=== PATIENT | female | born 1950 | race Caucasian/White ===

== ENCOUNTER → 2017-12-11 | Outpatient (CLI) | payer OTHER ==
[2017-12-11 13:16] LABS: MEAN CORPUSCULAR HGB CONC 32.8 g/dl (32-36); MEAN PLATELET VOLUME 10.5 fL (7.4-10.4); PLATELET COUNT 253 K/uL (130-400)
[2017-12-11 13:50] LABS: BASO % 0.4 %; BASO ABS # 0.02 K/uL (0-0.2); EOS % 3.9 %; EOS ABS # 0.21 K/uL (0-0.5); HEMATOCRIT 39.6 % (37-47); IG# 0.01 K/uL (0.00-0.02); LYMPH ABS # 1.49 K/uL (1.2-3.4); MEAN CELL VOLUME 89.4 fL (80-100); MEAN CORPUSCULAR HEMOGLOBIN 29.3 pg (25-34); MONO % 10.9 %; MONO ABS # 0.58 K/uL (0.11-0.59); NEUT % 56.6 %; NEUT ABS # 3.02 K/uL (1.4-6.5); WHITE BLOOD COUNT 5.33 K/uL (4.8-10.8)
[2017-12-11 14:00] LABS: BLOOD UREA NITROGEN 28 mg/dl (7-18); CALCIUM 9.3 mg/dl (8.5-10.1); CARBON DIOXIDE 28 mmol/L (21-32); CREATININE 1.11 mg/dl (0.60-1.20); GLUCOSE 81 mg/dl (70-99); POTASSIUM 4.3 mmol/L (3.5-5.1); SODIUM 140 mmol/L (136-145)
[2017-12-12 06:30] LABS: HEMOGLOBIN A1C 5.8 % (4.5-5.6)
== END | disposition home or self-care (01) ==
LOC: C.LABMFLN 10:08
PROVIDERS: ATTEND Family Medicine
DX: I10 Essential (primary) hypertension (principal); R73.01 Impaired fasting glucose; R12 Heartburn

== ENCOUNTER 2021-10-14 08:53 | Inpatient (IN) ==
--- NOTE | 2021-10-05 14:35 | Anesthesiology Consultation ---
Date of Service October 05, 2021 Assessment & Plan (1) Encounter for pre-operative examination: Chart Review Chart Review: Acceptable Risk for Surgery (pending preop Covid testing results ) and Patient NOT seen in Pre Admission Testing Per nursing assessment 10/05/2021, pt resides in [facility]. Wears mask in public. Travels to [facility]. Did attend meeting on 09/30/21- was in large room for one hour- wore mask- person at meeting did test Covid positive with home test. Pt denies any current symptoms related to Covid. No known Covid testing in the past 90 days. Pt is fully vaccinated for Covid. Preop Covid testing scheduled 10/12/21 (will be 12 days since possible Covid exposure)= will await results Pt seen by PCP 10/03/21= seen for ER follow up- was under increased stress- BP was high and patient felt lightheaded- did go to ER. No chest pain or SOB. Troponin and EKG was good. Patient is scheduled for upcoming knee replacement on October 14, 2021. Preop labs reviewed and felt acceptable. Patient checking BP at homehas been in 140-150s systolically and 70 to 80s diastolically. Atenolol increased to 25 mg twice daily. Continue all other medications. Continue to monitor blood pressure. We will follow-up with patient after surgery on 10/14/2021. History Surgery Operation Date: 10/14/21 09:55 Proposed Procedures p Left Total Knee Arthroplasty - Pelon Nicole DO Height/Weight Height: 5 ft 2 in Weight: 86.183 kg Allergies Allergy/AdvReac Type Severity Reaction Status Date / Time Sulfa (Sulfonamide Allergy Intermediate Rash Verified 10/05/21 10:39 Antibiotics) ibuprofen Allergy Mild Rash Verified 10/05/21 10:39 Medications Home Medications Medication Instructions Recorded Confirmed Last Taken lactobacillus combination no.8 3 3,000 mmu cells PO QAM 05/25/20 10/05/21 Unknown billion cell capsule (Adult Probiotic) diclofenac sodium 1 % topical gel 2 g TOPICAL QID PRN 01/18/21 10/05/21 Unknown (Voltaren) aspirin 81 mg tablet,delayed 81 mg PO QAM 06/06/21 10/05/21 Unknown release calcium carbonate 600 mg-vitamin 1 tab PO QAM 06/06/21 10/05/21 Unknown D3 5 mcg (200 unit) tablet cetirizine 10 mg tablet (Allergy 10 mg PO HS 06/06/21 10/05/21 Unknown Relief (cetirizine)) cholecalciferol (vitamin D3) 25 1,000 units PO QAM 06/06/21 10/05/21 Unknown mcg (1,000 unit) capsule furosemide 20 mg tablet (Lasix) 20 mg PO QAM 06/06/21 10/05/21 Unknown lisinopril 20 mg tablet 20 mg PO QAM 06/06/21 10/05/21 Unknown multivitamin 1 cap PO QAM 06/06/21 10/05/21 Unknown omeprazole 20 mg capsule,delayed See Rx Instructions .ROUTE 08/29/21 10/05/21 Unknown release .COMPLEX #90 capsule atenolol 25 mg tablet 25 mg PO BID 10/05/21 10/05/21 Unknown Past Medical History Medical History Allergic rhinitis Anxiety Chronic kidney disease, stage III (moderate) F/U PCP Dyslipidemia no meds Heartburn Well controlled and stable HTN (hypertension) Impaired fasting glucose Hgb A1C 5.8 on 09/27/21 Menopause Osteoarthritis Past Family History Family History Mother Bacterial meningitis Diabetes Father Hypertension Myocardial infarction Thyroid disorder Aunt Breast cancer Denies family history of Ovarian cancer Prostate cancer Lung cancer Colorectal cancer Past Surgical History Surgical History H/O breast biopsy benign H/O foot surgery Hammer toe and bunion surgery > bilat feet History of cataract surgery bilat History of colonoscopy Social History Smoking Status: Never smoker Do You Dip or Chew Tobacco: No Hx Alcohol Use: Yes Alcohol type: hard liquor alcohol intake frequency: holidays/special occasions only Hx Substance Use: No substance use type: does not use Lab Results Anesthesia Preop Results Results Anesthesia Widget: WBC 5.80 K/uL (4.8-10.8) 09/27/21 Hgb 13.7 g/dL (12.0-16.0) 09/27/21 Hct 42.8 % (37-47) 09/27/21 Plt 280 K/uL (130-400) 09/27/21 Na 137 mmol/L (136-145) 09/27/21 K 4.1 mmol/L (3.5-5.1) 09/27/21 Cl 103 mmol/L (98-107) 09/27/21 CO2 28 mmol/L (21-32) 09/27/21 BUN 20 mg/dl (6-23) 09/27/21 Creat 1.04 mg/dl (0.6-1.2) 09/27/21 Glucose Level 102 mg/dl (70-99(Fasting)) H 09/27/21 PT 10.0 Seconds (9.0-12.0) 09/27/21 PTT 27.1 Seconds (21.0-31.0) 09/27/21 INR 1.0 (0.9-1.1) 09/27/21 HA1c 5.8 % (4.5-5.6) H 09/27/21 Urine Color Yellow 09/27/21 Urine Appearance Clear (Clear) 09/27/21 Urine pH 7.5 (4.5-7.5) 09/27/21 Urine Specific [place] 1.015 (1.000-1.030) 09/27/21 Urine Protein 1+ (Negative) H 09/27/21 Urine Glucose (UA) Negative (Negative) 09/27/21 Urine Ketones Negative (Negative) 09/27/21 Urine Blood 1+ (Negative) H 09/27/21 Urine Nitrite Negative (Negative) 09/27/21 Urine Bilirubin Negative (Negative) 09/27/21 Urine Urobilinogen Negative (Negative) 09/27/21 Urine Leukocyte Esterase 1+ (Negative) H 09/27/21 Urine WBC (Auto) 1-5 /hpf (0-5) 09/27/21 Urine RBC (Auto) 10-30 /hpf (0-4) H 09/27/21 Urine Hyaline Casts (Auto) 1-5 /lpf (0-5) 09/27/21 Urine Epithelial Cells (Auto) >30 /lpf (0-5) H 09/27/21 Urine Bacteria (Auto) Negative (Negative) 09/27/21 Testing Electrocardiogram Date: 06/14/21 Findings: + NSR @ (72bpm) Normal EKG per cardio Chest X-Ray Date: 09/07/21 Findings: + NAD
--- NOTE | 2021-10-11 08:34 | History & Physical Report ---
Date of Service October 11, 2021 Assessment & Plan (1) Left knee DJD: Plan: Schedule a left knee TKA for 10.14.21. All potential risks, benefits, complications, alternatives, and rehab have been discussed with the patient and she wishes to proceed. Will plan for ASA 81 mg BID x 4 wks for post op DVT prophylaxis. Possible d/c home with home health upon d/c. History of Present Illness Chief Complaint: left knee pain Primary Care Provider: Glenn Lieberman DO This is a patient with chronic left knee pain that has been treated for left knee osteoarthritis. She has failed all conservative management. She is now being set up for surgical management. Allergies Allergy/AdvReac Type Severity Reaction Status Date / Time Sulfa (Sulfonamide Allergy Intermediate Rash Verified 10/05/21 10:39 Antibiotics) ibuprofen Allergy Mild Rash Verified 10/05/21 10:39 Home Medications Medication Instructions Recorded Confirmed Type lactobacillus combination no.8 3 3,000 mmu cells PO QAM 05/25/20 10/05/21 History billion cell capsule (Adult Probiotic) diclofenac sodium 1 % topical gel 2 g TOPICAL QID PRN 01/18/21 10/05/21 History (Voltaren) aspirin 81 mg tablet,delayed 81 mg PO QAM 06/06/21 10/05/21 History release calcium carbonate 600 mg-vitamin 1 tab PO QAM 06/06/21 10/05/21 History D3 5 mcg (200 unit) tablet cetirizine 10 mg tablet (Allergy 10 mg PO HS 06/06/21 10/05/21 History Relief (cetirizine)) cholecalciferol (vitamin D3) 25 1,000 units PO QAM 06/06/21 10/05/21 History mcg (1,000 unit) capsule furosemide 20 mg tablet (Lasix) 20 mg PO QAM 06/06/21 10/05/21 History lisinopril 20 mg tablet 20 mg PO QAM 06/06/21 10/05/21 History multivitamin 1 cap PO QAM 06/06/21 10/05/21 History omeprazole 20 mg capsule,delayed See Rx Instructions .ROUTE 08/29/21 10/05/21 Rx release .COMPLEX #90 capsule atenolol 25 mg tablet 25 mg PO BID 10/05/21 10/05/21 History Past Med/Surg History Medical History Allergic rhinitis Anxiety Chronic kidney disease, stage III (moderate) F/U PCP Dyslipidemia no meds Heartburn Well controlled and stable HTN (hypertension) Impaired fasting glucose Hgb A1C 5.8 on 09/27/21 Menopause Osteoarthritis Surgical History H/O breast biopsy benign H/O foot surgery Hammer toe and bunion surgery > bilat feet History of cataract surgery bilat History of colonoscopy Family History Mother Bacterial meningitis Diabetes Father Hypertension Myocardial infarction Thyroid disorder Aunt Breast cancer Denies family history of Ovarian cancer Prostate cancer Lung cancer Colorectal cancer Social History Smoking Status: Never smoker Second Hand Exposure: Yes (FATHER SMOKED); Hx Alcohol Use: Yes Alcohol type: hard liquor Hx Substance Use: No Preferred Language: Divehi Communication Ability: Effective Visual Impairment: Partially Limited Hearing Ability: Normal Shoe Stainer Required: No Beliefs That Will Affect Care: None marital status: Current Living Situation: Spouse current occupational status: retired How many Children do You have: 2 Feels Safe at Home: Yes Childhood Exposure to Second-Hand Smoke: Yes Diet Comment: regular diet caffeine: Yes (soda- occasion) during the past year weight has: remained stable Dental Care, Regularly: Yes Physical Activity Frequency: Daily Physical Activity Frequency Comment: walks 2 miles a day Seatbelt Use: always Sunscreen Use: No Do you think of yourself as: straight/heterosexual Assistive Devices: Glasses Physical Exam Constitutional: well developed and well nourished; no acute distress ENMT: external ear and nose normal, oropharynx normal Neck: trachea midline Respiratory: normal respiratory effort, lungs clear to auscultation Cardiovascular: Rate/Rhythm: regular rate and regular rhythm Gastrointestinal (Abdomen): normal bowel sounds, soft, nontender, no hepatosplenomegaly Musculoskeletal: Knee: + joint line tenderness (left medial/lateral joint lines); no skin erythema, no ecchymosis, no valgus alignment and no varus alignment Skin: no rashes, warm and dry Neurologic: normal touch/pain/proprioception Psychiatric: A+Ox3, euthymic affect Speech: normal rate/rhythm/volume of speech Lymphatic: no cervical or axillary lymphadenopathy
[~2021-10-14 08:53] MED LIST: ACETAMINOPHEN 500 MG TAB PO SCH; BUPIVACAINE 0.5 % 5 MG/1 ML PF 10ML VIAL ONE; EPINEPHrine INJ 1 MG/ML AMP ONE; FAMOTIDINE 20 MG TAB PO SCH; GABAPENTIN 600 MG DOSE PO SCH; LR 500ML BOLUS, THEN 15ML/HR IV SCH; ROPIVACAINE 0.5% 5 MG/ML 30 ML VIAL ONE; ROPIVACAINE 0.5% HCL/PF 150 MG, BUPIVACAINE 0.75% MPF 20 ML, EPINEPHrine 30MG/30ML (OR ... INFIL SCH; TRANEXAMIC ACID 1,000 MG **IV Intra-op IV SCH; TRANEXAMIC ACID 1,000 MG **IV Pre-op IV SCH; VANCOMYCIN HCL 1,250 MG in SODIUM CHLORIDE 0.9% 250 ML IV SCH; dexAMETHasone 4 MG TAB PO SCH; oxyCODONE HCL 10 MG TABCR (OxyCONTIN) PO SCH
--- NOTE | 2021-10-14 09:40 | History & Physical Bridge Note ---
Date of Service October 14, 2021 History & Physical Bridge Note I have examined the patient, reviewed the History & Physical and in the interval since the performance of the History & Physical I have noted the following changes of clinical significance: no changes noted
[2021-10-14] MEDS ORDERED: ATROPINE SULFATE 0.1 MG/ML 10ML SYR IV PRN (10:06)
[2021-10-14] MEDS ORDERED: MIDAZOLAM HCL 1 MG/ML 2ML VIAL ONE (10:06)
[2021-10-14] MEDS ORDERED: ePHEDrine sulfate 50 MG/ML AMP IV PRN (10:06)
[2021-10-14] MEDS ORDERED: ONDANSETRON INJ 2 MG/ML 2 ML VIAL IV PRN ×2 (10:06→15:03)
[2021-10-14] MEDS ORDERED: HYDROmorphone INJ 1 MG/ML SYRINGE IV PRN (10:06)
[2021-10-14] MEDS ORDERED: ceFAZolin 330 MG/ML 1 GM VIAL ONE (11:03)
[2021-10-14] MEDS ORDERED: ORTHO JOINT ANESTHETIC ONE (11:03)
[2021-10-14] MEDS ORDERED: LIDOCAINE 2% 2 ML VIAL/AMP(20MG/ML) INFIL ONE (12:19)
[2021-10-14] MEDS ORDERED: ONDANSETRON INJ 2 MG/ML 2 ML VIAL ONE (12:19)
[2021-10-14] MEDS ORDERED: PROPOFOL IV EMULSION 10 MG/ML 20 ML VIAL IV ONE ×2 (12:19→13:30)
--- NOTE | 2021-10-14 13:25 | Post Operative Brief Note ---
Immediate Post Op Note v1 Date of Surgery October 14, 2021 Pre & Post Diagnosis Operation Date: 10/14/21 10:25 Pre-Op Diagnosis: Left Knee Osteoarthritis, flexion contracture left knee, left knee pain Post-Op Diagnosis: Left Knee Osteoarthritis, flexion contracture left knee, left knee pain I identified the patient and participated in the time-out.: Yes Procedure Operation Date: 10/14/21 10:25 Actual Procedures p Left Total Knee Arthroplasty Ba & Neph MRI matched cemented size 5 femur, size 3 tibial insert, 15 mm posterior stabilized polyethylene, 35 mm round patella Pelon Nicole DO Surgeon Pelon Nicole DO Press Box Custodian Dinh Lopez PA-C Estimated Blood Loss 5 Findings Consistent with Post-Op Diagnosis Specimens Bone and tissue left knee Drains Hemovac Drain Anesthesia Type MAC Spinal Regional Complications none Disposition Accompanied Patient To Recovery: No
--- NOTE | 2021-10-14 14:21 | Operative Report (OR) ---
DATE OF PROCEDURE: 10/14/2021. PREOPERATIVE DIAGNOSES: 1. Left knee osteoarthritis. 2. Flexion contracture. 3. Left knee pain. POSTOPERATIVE DIAGNOSES: 1. Left knee osteoarthritis. 2. Flexion contracture. 3. Left knee pain. PROCEDURE: Left total knee arthroplasty using a Ba and Nephew MRI matched cemented size 5 femur, size 3 tibia, 15 mm posterior stabilized polyethylene and a 35 mm round patella. SURGEON: Pelon Nicole DO. HYBRID TESTER: Dinh Lopez PA-C who was present for patient positioning, sterile prep and drape, management of retractors and instruments. He was present through the critical portions of the case including wound closure, application of sterile dressing and transport of the patient to recovery. ANESTHESIA: Spinal MAC, regional with intraarticular local. SPECIMENS: Bone and tissue, left knee. DRAINS: Hemovac x2. COMPLICATIONS: None. BLOOD LOSS: 5 mL. PERTINENT HISTORY: This is a 71-year-old female who has had chronic progressive and worsening left knee pain, swelling, effusion and deformity. She attempted and failed conservative management including physical therapy, NSAIDs, rest, ice, elevation, heat, physician-directed home exercises, use of brace and use of an assistive device. Radiographs demonstrate severe degenerative arthritis, particularly of the patellofemoral articulation with a slight plantar flexion contracture, marginal osteophytes, subchondral sclerosis, and subchondral cysts. The patient was then scheduled for surgery as indicated. All potential risks, benefits, complications, alternatives, rehab potential for incomplete relief of symptoms, need for further surgery, DVT, PE, , persistent pain, swelling, scarring, weakness, neurovascular injury, wound complications, hardware failure, nonunion, malunion, bone fracture were discussed with the patient. The patient decided to proceed with the procedure as indicated. PROCEDURE: The patient was taken to the Operative Suite and placed supine on the operating table after spinal epidural was initiated. Next, tourniquet was placed high on the left thigh over cast padding and the patient was sedated. The left lower extremity was then sterilely prepped and draped in the usual fashion. It was elevated and exsanguinated with an Esmarch bandage and tourniquet inflated to 350 mmHg. Next, a 10-blade scalpel incision was made along the anterior midline of the left knee with incision deep through the subcutaneous tissue. Meticulous hemostasis was utilized with electrocautery. Full thickness skin flaps were developed both medially and laterally and 10-blade scalpel was used to make a median parapatellar incision in the extensor. The patella was everted and soft tissue releases were performed. The medial collateral was noted to be slightly tight so this was partially released using pie-crusting technique and the Phoenix elevator was placed from the posterior aspect of the capsule releasing any contracture. Next, the patella was everted and resurfaced using sagittal saw and orthogonal cuts. After caliper measured 28 mm, residual patella was approximately 15 mm and 35 mm button trial was placed and then drilled. Next, the appropriate retractors were placed and the femoral patient matched cutting block was pinned to the distal aspect of the femur. The distal femoral cut was made and pinned with pins and the distal femoral cutting guide was removed. The 4-in-1 cutting block was then pinned in place and anterior, posterior, anterior chamfer, and posterior chamfer cuts were made. Block and bone fragments were then removed followed by exposure of the proximal tibia. Sharp Hohmann was used to place just posterior to the tibia to protract it. Medial and lateral sharp Hohmann's were placed to protect the soft tissue and the tibial cutting block was then pinned in place. Tibial alignment angelika was utilized to confirm alignment and the proximal tibia was then cut made with sagittal saw. Fragment was removed. The Size 3 tibial trial was pinned in place and circumferential proximal release was performed with electrocautery around the proximal tibia. Next, the femoral trial was placed within appropriate medial and lateral alignment and then the cutting block was then put into place. It was reamed and box cut was performed. Excess debris was removed from the femoral notch. The insert was placed into the distal aspect of the femur. Trial poly Size 15 mm was placed on the proximal tibia. The knee was reduced. Trial poly Size 35 mm was placed in the patella. The knee was reduced. Excellent alignment and range of motion was achieved with correction of the genu varum and flexion contracture was achieved. Next, all components were removed. The Orthomix was injected into the posterior capsule and anterior aspect of the capsule. Next, the wound was lavaged with pulsatile lavage and all surfaces were suctioned and dried. Palacos-G cement was placed in the distal femur, proximal tibia, patella, and then a small amount was placed in the canal of the tibia. All implants were impacted into place in a stable fashion. Excess cement was removed from the joint. The patellar button was cemented and clamped in place. The incision was soaked with dilute sterile Betadine for a period of 3 minutes. Betadine was then suctioned from the joint. Site was copiously irrigated with sterile saline until clear. After sufficient drying time elapsed a 10-Georgian double lumen Hemovac drain was placed in the anterolateral aspect of the knee. The extensor mechanism was closed using interrupted #1 Vicryl. The dermis was closed using buried interrupted 2-0 Vicryl. The skin was closed with skin tisha. Sterile compressive dressing from the toes to the groin was applied. The tourniquet was released. The patient was awakened and taken to the Recovery Room in stable condition. Job ID: [id number] [facility]
--- NOTE | 2021-10-14 14:24 | XRay Report ---
LEFT KNEE 2 VIEWS History: Left total knee arthroplasty. Degenerative arthritis. Postop. FINDINGS: The patient is status post a left total knee arthroplasty. The hardware is intact. No fract ure or dislocation. Skin tisha and surgical drains are in place. IMPRESSION: Left total knee arthroplasty. No evidence for hardware complication. ACT 112: Negative or not required by law. Electronically signed by: Larry Irizarry M.D. 10/14/2021 2:23 PM
--- NOTE | 2021-10-14 14:50 | Anesthesiology Progress Note ---
Date of Service October 14, 2021 Anesthesia Post Procedure Vital Signs Vital Signs: Temp Pulse Pulse Resp BP Pulse Ox 10/14/21 14:45 36.3 C L 56 L 19 134/68 98 10/14/21 14:35 52 L 14 133/69 97 10/14/21 14:25 55 L 12 126/69 96 10/14/21 14:15 57 L 17 132/72 98 10/14/21 14:05 63 15 118/64 98 10/14/21 13:57 36.2 C L 65 12 122/64 97 10/14/21 11:15 57 L 20 115/56 L 98 10/14/21 11:12 55 L 20 116/59 L 99 10/14/21 11:06 55 L 20 116/59 L 99 10/14/21 11:05 57 L 20 114/60 98 10/14/21 11:03 59 L 20 116/59 L 99 10/14/21 11:02 59 L 20 105/64 99 10/14/21 10:59 59 L 20 112/56 L 97 10/14/21 09:56 37.2 C 65 20 153/102 H 97 Transfer of Care Handoff Completed per policy Notes Mental Status: alert / awake / arousable Patient Amnestic to Procedure: Yes Nausea / Vomiting: adequately controlled Pain: adequately controlled Airway Patency, RR, SpO2: stable & adequate BP & HR: stable & adequate Hydration State: stable & adequate Anesthetic Complications: no major complications apparent
[2021-10-14] MEDS ORDERED: MAGNESIUM HYDROXIDE SUSP 30 ML UDC PO PRN (15:03)
[2021-10-14] MEDS ORDERED: HYDROmorphone INJ 0.5 MG/0.5 ML SYR IV PRN (15:03)
[2021-10-14] MEDS ORDERED: DICLOFENAC SOD 1% GEL 100 GM TUBE EXT PRN (15:03)
[2021-10-14] MEDS ORDERED: NALOXONE HCL 0.4 MG/1 ML VIAL/CARP IV PRN (15:03)
[2021-10-14] MEDS ORDERED: bisacodyL 10 MG SUPP PR PRN (15:03)
[2021-10-14] MEDS ORDERED: oxyCODONE HCL IR 5 MG TAB (IMMEDIATE RELEASE) PO PRN (15:03)
[2021-10-14] MEDS ORDERED: KETOROLAC TROMETHAMINE 15 MG/ML VIAL IV PRN (15:03)
[2021-10-14] MEDS ORDERED: METOCLOPRAMIDE HCL INJ 5 MG/ML 2 ML VIAL IV PRN (15:03)
[2021-10-14] MEDS ORDERED: diphenhydrAMINE Capsule 25 MG CAP PO PRN (15:03)
[2021-10-14] MEDS ORDERED: VANCOMYCIN CONSULT ACTIVE PRN (15:03)
[2021-10-14] MEDS: SODIUM CHLORIDE 0.9% 1000ML 1,000 ML IV SCH (15:05)
[2021-10-14] MEDS: ACETAMINOPHEN 500 MG TAB PO SCH ×2 (17:13→21:51)
[2021-10-14] MEDS ORDERED: traMADol HCL 50 MG TABLET PO PRN (17:57)
[2021-10-14] MEDS ORDERED: cloNIDine HCL 0.1 MG TAB PO PRN (18:06)
--- NOTE | 2021-10-14 18:11 | Hospitalist Consultation ---
Date of Consultation October 14, 2021 Assessment & Plan (1) Sinus bradycardia: * Patient routinely takes atenolol-- she did take this today * Perioperatively was given oxycodone and propofol * Perioperative heart rate in the 50s. When got to the floor, was 44. Current heart rate is 56 * I suspect due to beta-blockade, propofol and oxycodone given * Patient reports that her heart rate typically is in the 60s. Not much wiggle room with this * Hold atenolol for now * Would avoid opiates. I have transitioned her pain medication to Ultram * Given asymptomatic bradycardia at 44 with current heart rate of 56, I do not feel that she needs moved to the PCU. Encourage patient that she should not g et out of bed alone (2) HTN (hypertension): * Blood pressure currently 127/79 * Hold atenolol due to sinus bradycardia as outlined above * Hold lisinopril given spinal anesthesia utilized. This poses increased risk of LARISA (especially in the setting of CKD) and hypotension. Okay to resume 48 hours postoperatively pending renal function remains stable * Hold Lasix. Patient reports that she uses this for blood pressure. She does not have a history of CHF. Given her underlying CKD, would question this. Could utilize additional medications that are not nephrotoxic * Clonidine with parameters ordered if needed (3) Chronic kidney disease, stage III (moderate): * Creatinine 1.04 preoperatively * Follow-up labs in the a.m. * Again, avoid nephrotoxic agents as outlined above (4) GERD (gastroesophageal reflux disease): * stable Plan of care will be discussed with Dr. Bael. Further orders as warranted. Thank you for allowing us to participate in the care of this patient. We will continue to follow for now History of Present Illness Reason for Consultation: Bradycardia Requesting Physician: Dr. Nicole Attending Physician: Pelon Nicole DO History of Present Illness Mrs. Galvez is a 71-year-old white female with an underlying past medical history of HTN, GERD, and OA failing conservative measures. She underwent an elective left total knee arthroplasty today by Dr. Hunter Nicole. She had an uneventful perioperative course. She was given spinal anesthesia along with propofol, transischemic acid, bupivacaine and ropivacaine. Preoperatively, she received oxycodone. Her heart rate perioperatively has been in the 50s. When she came back from PACU, heart rate was noted to be 44 and medicine was consulted. Patient denies dizziness/lightheadedness and is completely asymptomatic. She does have an underlying history of HTN for which she takes atenolol. She did take this medication this morning. She has a history of bradycardia postoperatively in the past. At the time of evaluation by myself, her current heart rate is 56. Of note, patient denies a history of postoperative complications in the past. She denies a personal, and/or family history of DVT, PE, low dyscrasia. She lives in a bilevel home and she is hopeful to go back home upon discharge. Allergies Allergy/AdvReac Type Severity Reaction Status Date / Time Sulfa (Sulfonamide Allergy Intermediate Rash Verified 10/14/21 09:34 Antibiotics) ibuprofen Allergy Mild Rash Verified 10/14/21 09:34 Home Medications Medication Instructions Recorded Confirmed Type lactobacillus combination no.8 3 3,000 mmu cells PO QAM 05/25/20 10/14/21 History billion cell capsule (Adult Probiotic) diclofenac sodium 1 % topical gel 2 g TOPICAL QID PRN 01/18/21 10/14/21 History (Voltaren) aspirin 81 mg tablet,delayed 81 mg PO QAM 06/06/21 10/14/21 History release calcium carbonate 600 mg-vitamin 1 tab PO QAM 06/06/21 10/14/21 History D3 5 mcg (200 unit) tablet cetirizine 10 mg tablet (Allergy 10 mg PO HS 06/06/21 10/14/21 History Relief (cetirizine)) cholecalciferol (vitamin D3) 25 1,000 units PO QAM 06/06/21 10/14/21 History mcg (1,000 unit) capsule furosemide 20 mg tablet (Lasix) 20 mg PO QAM 06/06/21 10/14/21 History lisinopril 20 mg tablet 20 mg PO QAM 06/06/21 10/14/21 History multivitamin 1 cap PO QAM 06/06/21 10/14/21 History omeprazole 20 mg capsule,delayed See Rx Instructions .ROUTE 08/29/21 10/05/21 Rx release .COMPLEX #90 capsule atenolol 25 mg tablet 25 mg PO BID 10/05/21 10/14/21 History Patient History Medical History Allergic rhinitis Anxiety Chronic kidney disease, stage III (moderate) F/U PCP Dyslipidemia no meds Heartburn Well controlled and stable HTN (hypertension) Impaired fasting glucose Hgb A1C 5.8 on 09/27/21 Menopause Osteoarthritis Surgical History H/O breast biopsy benign H/O foot surgery Hammer toe and bunion surgery > bilat feet History of cataract surgery bilat History of colonoscopy Family History Mother Bacterial meningitis Diabetes Father Hypertension Myocardial infarction Thyroid disorder Aunt Breast cancer Denies family history of Ovarian cancer Prostate cancer Lung cancer Colorectal cancer Social History Smoking Status: Never smoker Second Hand Exposure: Yes (FATHER SMOKED); Do You Dip or Chew Tobacco: No; Hx Alcohol Use: Yes Alcohol type: hard liquor Hx Substance Use: No Preferred Language: Mongolian Communication Ability: Effective Visual Impairment: Partially Limited Hearing Ability: Normal Back Tender Fourdrinier Required: No Beliefs That Will Affect Care: None marital status: Current Living Situation: Spouse current occupational status: retired How many Children do You have: 2 Other Information That Helps Us Care for You: No Feels Safe at Home: Yes Safety Concerns: Feels Safe At This Time Childhood Exposure to Second-Hand Smoke: Yes Diet Comment: regular diet caffeine: Yes (soda- occasion) during the past year weight has: remained stable Dental Care, Regularly: Yes Physical Activity Frequency: Daily Physical Activity Frequency Comment: walks 2 miles a day Seatbelt Use: always Sunscreen Use: No Do you think of yourself as: straight/heterosexual Assistive Devices: Glasses and Walker Review of Systems Review of Systems: All systems reviewed and are unremarkable except as noted in HPI and below Denies fevers, chills, headache, nasal congestion, sore throat, cough, chest pain, shortness of breath, palpitations, orthopnea, PND, abdominal pain, nausea, vomiting, diarrhea, constipation, dysuria, hematuria, frequency, back pain, joint pain or swelling, easy bruising or bleeding, skin lesions or rashes. Physical Exam Physical Exam: General: Resting comfortably in her hospital bed. Appears younger than stated age. NAD. HEENT: Head is AT/NC buccal mucosa is moist and pink Neck: No JVD. Negative hepatojugular reflex Cardiac: Current HR of 56, regular with 1/6 EDGAR Lungs: CTA without W/R/R Abdomen: Normoactive X4. Soft and nontender in all quadrants. Extremities: Left lower extremity with Daniel wrap in place. Obvious Hemovac. Distal pulses intact and special bilaterally. Capillary fill +2. Negative Homans' sign. No calf tenderness Neuro: A&O X4 cranial nerves II through XII are grossly intact no focal neuro deficits Skin: No obvious skin lesions or rashes Psych: Appropriate affect pleasant and cooperative Results & Data Results & Data ([facility]) Vital Signs (Past 12 Hours) Vital Signs Temp Pulse Pulse Resp BP Pulse Ox 10/14/21 16:00 45 L 18 127/79 94 10/14/21 15:27 44 L 18 140/73 99 10/14/21 15:00 36.4 C L 51 L 18 128/79 98 10/14/21 14:45 36.3 C L 56 L 19 134/68 98 10/14/21 14:35 52 L 14 133/69 97 10/14/21 14:25 55 L 12 126/69 96 10/14/21 14:15 57 L 17 132/72 98 10/14/21 14:05 63 15 118/64 98 10/14/21 13:57 36.2 C L 65 12 122/64 97 10/14/21 11:15 57 L 20 115/56 L 98 10/14/21 11:12 55 L 20 116/59 L 99 10/14/21 11:06 55 L 20 116/59 L 99 10/14/21 11:05 57 L 20 114/60 98 10/14/21 11:03 59 L 20 116/59 L 99 10/14/21 11:02 59 L 20 105/64 99 10/14/21 10:59 59 L 20 112/56 L 97 10/14/21 09:56 37.2 C 65 20 153/102 H 97 Laboratory Results No lab data today. Reviewed labs from 09/27. CBC and metabolic panel within normal limits PG Care Time/CCT Total # of Minutes Spent Total Time Spent with Patient: Total time spent is greater than 50% in coordination of care (as documented) at patient's floor/unit and/or counseling patient: Coding Level of Care Code 71896 Inpt Consult Level 5 Diagnoses Sinus bradycardia R00.1 HTN (hypertension) I10 Chronic kidney disease, stage III (moderate) N18.3 GERD (gastroesophageal reflux disease) K21.9
[2021-10-14] MEDS: DOCUSATE SODIUM 100 MG CAP PO SCH (20:05)
[2021-10-14] MEDS: ASPIRIN 81 MG ECTAB PO SCH (20:05)
[2021-10-14] MEDS ORDERED: SENNA 8.6 MG TAB PO SCH (21:00)
[2021-10-14] MEDS ORDERED: ATENOLOL 25 MG TABLET PO SCH (21:00)
[2021-10-14] MEDS ORDERED: CETIRIZINE HCL 10 MG TABLET PO SCH (21:00)
[2021-10-14] MEDS: traMADol HCL 50 MG TABLET PO PRN (23:34)
[2021-10-14] MEDS ORDERED: VANCOMYCIN HCL 1,250 MG in SODIUM CHLORIDE 0.9% 250 ML IV SCH (23:45)
[2021-10-15] MEDS: SODIUM CHLORIDE 0.9% 1000ML 1,000 ML IV SCH (01:04)
[2021-10-15] MEDS: ACETAMINOPHEN 500 MG TAB PO SCH ×2 (05:47→13:35)
[2021-10-15] MEDS: ASPIRIN 81 MG ECTAB PO SCH (08:05)
[2021-10-15] MEDS: DOCUSATE SODIUM 100 MG CAP PO SCH (08:06)
[2021-10-15] MEDS ORDERED: lisinopril 20 MG TAB PO SCH (09:00)
[2021-10-15] MEDS ORDERED: CHOLECALCIFEROL 1,000 UNITS 25 MCG TAB PO SCH (09:00)
[2021-10-15] MEDS ORDERED: PANTOprazole 40 MG TAB PO SCH (09:00)
[2021-10-15] MEDS ORDERED: ADVANCED PROBIOTIC 1250 MG CAPSULE PO SCH (09:00)
[2021-10-15] MEDS ORDERED: CALCIUM 600MG + VIT D 400 IU TAB PO SCH (09:00)
[2021-10-15] MEDS ORDERED: NON-FORMULARY MEDICATION (Multivitamin capsule) PO SCH (09:00)
[2021-10-15] MEDS ORDERED: MULTIVITAMIN TAB PO SCH (09:00)
[2021-10-15] MEDS ORDERED: FUROSEMIDE 20 MG TAB PO SCH (09:00)
[2021-10-15 09:22] LABS: Hematocrit (blood only) 38.8 % (37-47); Hemoglobin 12.2 g/dL (12.0-16.0); Mean Corpuscular Hemoglobin 28.6 pg (25-34); Mean Corpuscular Hgb Conc 31.4 g/dL (32-36); Mean Corpuscular Volume 90.9 fL (80-100); Mean Platelet Volume 10.3 fL (7.4-10.4); Platelet Count 244 K/uL (130-400); RDW Coefficient of Variation 14.7 % (11.5-14.5); RDW Standard Deviation 48.6 fL (36.4-46.3); Red Blood Count 4.27 M/uL (4.2-5.4); White Blood Count 14.59 K/uL (4.8-10.8)
[2021-10-15 09:57] LABS: BUN Creatinine Ratio 21.8 (10-20); Calcium 8.8 mg/dl (8.5-10.1); Creatinine Clr Calc Pharmacy 40.1 ml/min; Est GFR (African American) 46.8 ml/min; Est GFR (Non-African American) 40.4 ml/min; Potassium 4.2 mmol/L (3.5-5.1)
--- NOTE | 2021-10-15 10:00 | Orthopedic Progress Note ---
Date of Service October 15, 2021 Assessment & Plan (1) Left knee DJD: Plan: Postop day #1 status post left total knee arthroplasty Pain controlUltram and Tylenol PT/OT Hemovac will be removed prior to discharge. Continue Prevena dressing for 7 days. Discharge planninghome today with home health. Admission and Anticipated Discharge Date Admission Date: October 14, 2021 Subjective Doing well. Pain is controlled in the left knee. She has not had PT yet. However, she has been ambulating to the bathroom. No new complaints today. Denies chest pain, shortness of breath, lightheadedness. Physical Exam Constitutional: well developed and well nourished; no acute distress ENMT: external ear and nose normal, oropharynx normal Neck: trachea midline Respiratory: normal respiratory effort, lungs clear to auscultation Cardiovascular: Rate/Rhythm: regular rate and regular rhythm Gastrointestinal (Abdomen): normal bowel sounds, soft, nontender, no hepatosplenomegaly Musculoskeletal: Knee: + surgical incision (Left knee: Prevena dressing in place and functioning.) and + surgical drain present (65 cc over ~24 hours); no skin erythema, no ecchymosis, no valgus alignment and no varus alignment Skin: no rashes, warm and dry Neurologic: normal touch/pain/proprioception (right dorsiflexion and plantarflexion intact.) Psychiatric: A+Ox3, euthymic affect Speech: normal rate/rhythm/volume of speech Lymphatic: no cervical or axillary lymphadenopathy Results & Data ([facility]) Vital Signs (Past 12 Hours) Vital Signs Temp Pulse Pulse Resp BP Pulse Ox 10/15/21 07:50 36.5 C 66 16 118/73 95 10/15/21 05:58 60 10/15/21 03:06 36.8 C 50 L 16 130/73 94 10/14/21 23:08 36.4 C L 45 L 16 111/70 98 Laboratory Results Laboratory Tests 10/15/21 09:08 Hgb 12.2 Hct 38.8
[2021-10-15] MEDS: traMADol HCL 50 MG TABLET PO PRN (13:35)
== END 2021-10-15 15:31 | disposition home health service (06) | DRG 470 ==
LOC: ASU 08:53 → 3E 08:53 → OBSVTOIN 14:00